=== PATIENT | male | born 1945 | race Caucasian/White ===

== ENCOUNTER 2016-11-30 22:49 | Emergency (ER) | payer MEDICARE ==
[2016-11-30 23:08] VITALS: BP 169/75
--- NOTE | 2016-12-01 01:01 | ED ---
Horacio Marrero Anna, scribed for Francis De Jesus MD on 11/30/16 at 2336 . Complex/Multi-Sys Presentation - HPI Summary HPI Summary: Patient is a 71 y/o male coming to [facility] after his Baclofen pump began beeping this evening at 2000. The alarm has been going off. He tried calling his doctor , Dr. Whitlock, but he was unable to get a hold of him. He took a PO dose of Baclofen at 2255. He denies current pain or other symptoms. - History Of Current Complaint Chief Complaint: EDGeneral Hx Obtained From: Patient, Family/Store Sales Manager - Accompanied by family Onset/Duration: Sudden Onset, Lasting Hours, Still Present Timing: Hours - Allergies/Home Medications Allergies/Adverse Reactions: Allergies Allergy/AdvReac Type Severity Reaction Status Date / Time Clindamycin Allergy Unknown Rash Verified 11/30/16 23:08 PMH/Surg Hx/FS Hx/Imm Hx Endocrine/Hematology History: Reports: Hx Diabetes - DIET CONTROLLED Denies: Hx Systemic Lupus Erythematosus Cardiovascular History: Reports: Hx Hypercholesterolemia, Hx Hypertension - ON MEDS Denies: Hx Congestive Heart Failure, Other Cardiovascular Problems/Disorders Respiratory History: Denies: Other Respiratory Problems/Disorders GI History: Reports: Other GI Disorders - CHRONIC HEPATITIS WITH ASSOCIATED ITCHING PER PT History: Denies: Hx Dialysis, Hx Renal Disease Musculoskeletal History: Reports: Hx Arthritis - RIGHT HIP REPLACED, Hx Osteoporosis, Hx Tendonitis - LEFT SHOULDER Denies: Hx Rheumatoid Arthritis Sensory History: Reports: Hx Contacts or Glasses - GLASSES Denies: Hx Hearing Aid Opthamlomology History: Reports: Hx Contacts or Glasses - GLASSES Neurological History: Reports: Hx Nerve Disease, 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 - Cancer History Hx Chemotherapy: No - Surgical History Surgery Procedure, Year, and Place: RIGHT HIP REPLACEMENT,PUMP FOR BACLOFEN, [place] Hx Anesthesia Reactions: No Infectious Disease History: Yes Infectious Disease History: Reports: Hx Hepatitis, Hx Human Immunodeficiency Virus (HIV) Denies: Traveled Outside the [place] in Last 30 Days - Family History Known Family History: Positive: Hypertension, Diabetes - Social History Occupation: Retired Lives: With Family Alcohol Use: Rare Alcohol Amount: Wine Substance Use Type: Reports: None Smoking Status (MU): Former Smoker Type: Cigarettes Amount Used/How Often: A TEENAGER FOR SHORT TIME Review of Systems Constitutional: Negative Neurological: Negative Psychological: Normal All Other Systems Reviewed And Are Negative: Yes Physical Exam Triage Information Reviewed: Yes Vital Signs On Initial Exam: Initial Vitals Temp Pulse Resp Pulse Ox 98.1 F 83 16 96 11/30/16 22:57 11/30/16 22:57 11/30/16 22:57 11/30/16 22:57 Vital Signs Reviewed: Yes Appearance: Positive: No Pain Distress Skin: Positive: Warm Head/Face: Positive: Normal Head/Face Inspection Eyes: Positive: SHANELL ENT: Positive: Hearing grossly normal Respiratory/Lung Sounds: Positive: Clear to Auscultation, Breath Sounds Present Cardiovascular: Positive: RRR Abdomen Description: Positive: Nontender, Soft, Other: - baclofen pump in place Bowel Sounds: Positive: Present Neurological: Positive: Alert, Oriented to Person Place, Time Diagnostics - Vital Signs Vital Signs Temp Pulse Resp BP Pulse Ox 11/30/16 23:00 98.1 F 83 16 169/75 96 11/30/16 22:57 98.1 F 83 16 96 - Laboratory Lab Statement: Any lab studies that have been ordered have been reviewed, and results considered in the medical decision making process. Complex Multi-Symp Course/Dx Assessment/Plan: Patient is a 71 y/o male coming to [facility] after his Baclofen pump began beeping this evening at 1999. The alarm has been going off. He tried calling his doctor, Dr. Whitlock, but he was unable to get a hold of him. He took a PO dose of Baclofen at 2255. He denies current pain or other symptoms. Discussed patient care with Dr. Hernandez (neurology) and Dr. Pope ( neurosurgery). Discussed with [employer] who will sent rep to check pump in am. Pt does not want to wait. Risks of leaving explained including withdrawal , loss of life, overdose. Pt understands and accepts risk - Diagnoses Provider Diagnoses: Chronic back pain - Physician Notifications Discussed Care Of Patient With: Dr. Hernandez (neurology) at 2337. He does not work with this patient and recommends that Dr. Pope be consulted. Dr. Pope (neurosurgery) at 2342. Dr. Pope has no recommendation. Discharge - Discharge Plan Condition: Fair Disposition: AGAINST MEDICAL ADVICE Patient Education Materials: Chronic Back Pain (ED) Referrals: Atiya Tovar MD [Primary Care Provider] - Additional Instructions: Follow up with your primary care physician within 48 hours. Return to the Emergency Department for new or worsening symptoms. The documentation as recorded by the Horacio vazquez Anna accurately reflects the service I personally performed and the decisions made by me, Francis De Jesus MD.
== END 2016-12-01 03:22 | disposition left against medical advice (07) ==
LOC: ED 22:49
DX: G89.29 Other chronic pain (principal); M54.9 Dorsalgia, unspecified; Z87.891 Personal history of nicotine dependence; Z53.21 Procedure and treatment not carried out due to patient leaving prior to being seen by health care provider
CPT/HCPCS: 99282

== ENCOUNTER 2016-12-01 07:55 | Emergency (ER) | payer MEDICARE ==
--- NOTE | 2016-12-01 13:56 | ED ---
Mariano Marrero Janilya, scribed for Sal Grossman MD on 12/01/16 at 0817 . Complex/Multi-Sys Presentation - HPI Summary HPI Summary: A 71 y/o male came in to [facility] presenting w/ a sudden onset of constant beeping of his baclofen pump starting last night at 1800. Pt is usually seen for these kinds of problems at a pain clinic, however at this time, it is closed. He states that a brewery representative will come and evaluate the pump. Pt says that the pump will shut down if not fixed quickly. Pt has baclofen pump for spasticity in legs for myopathy. Pt denies CP, SOB. Pt is currently in a wheelchair, although pt used his walker to ambulate. - History Of Current Complaint Chief Complaint: EDGeneral Hx Obtained From: Patient Onset/Duration: Gradual Onset, Lasting Days, Still Present Timing: Constant Severity Currently: Moderate Severity Initially: Moderate Associated Signs And Symptoms: Negative: SOB, Chest Pain - Allergies/Home Medications Allergies/Adverse Reactions: Allergies Allergy/AdvReac Type Severity Reaction Status Date / Time Clindamycin Allergy Unknown Rash Verified 11/30/16 23:08 PMH/Surg Hx/FS Hx/Imm Hx Previously Healthy: Yes Endocrine/Hematology History: Reports: Hx Diabetes - DIET CONTROLLED Denies: Hx Systemic Lupus Erythematosus Cardiovascular History: Reports: Hx Hypercholesterolemia, Hx Hypertension - ON MEDS Denies: Hx Congestive Heart Failure, Other Cardiovascular Problems/Disorders Respiratory History: Denies: Other Respiratory Problems/Disorders GI History: Reports: Other GI Disorders - CHRONIC HEPATITIS WITH ASSOCIATED ITCHING PER PT History: Denies: Hx Dialysis, Hx Renal Disease Musculoskeletal History: Reports: Hx Arthritis - RIGHT HIP REPLACED, Hx Osteoporosis, Hx Tendonitis - LEFT SHOULDER Denies: Hx Rheumatoid Arthritis Sensory History: Reports: Hx Contacts or Glasses - GLASSES Denies: Hx Hearing Aid Opthamlomology History: Reports: Hx Contacts or Glasses - GLASSES Neurological History: Reports: Hx Nerve Disease, 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 - Cancer History Hx Chemotherapy: No - Surgical History Surgery Procedure, Year, and Place: RIGHT HIP REPLACEMENT,PUMP FOR BACLOFEN, [place], [place] Hx Anesthesia Reactions: No Infectious Disease History: Reports: Hx Hepatitis, Hx Human Immunodeficiency Virus (HIV) Denies: Traveled Outside the [place] in Last 30 Days - Family History Known Family History: Positive: Hypertension, Diabetes - Social History Alcohol Use: Rare Alcohol Amount: Wine Substance Use Type: Reports: None Smoking Status (MU): Former Smoker Type: Cigarettes Amount Used/How Often: A TEENAGER FOR SHORT TIME Review of Systems Negative: Chest Pain Negative: Shortness Of Breath All Other Systems Reviewed And Are Negative: Yes Physical Exam - Summary Physical Exam Summary: Vital signs: reviewed General: Patient is comfortable sitting in wheal chair with no signs of distress. Patient walked in with a walker. He prefers to sit in a wheelchair vs stretcher. HEENT: within normal limits Lungs: CTA B/L CVS: S1 & S2 present. No murmurs appreciated. ABDOMEN: Soft, non-tender. No signs of distention. No rebound no guarding, and no masses palpated. Bowel sounds are normal. EXTREMITIES: FROM in all major joints, no edema, no cyanosis or clubbing. Positive diffuse muscle atrophy in his lower extremities. NEURO: Alert and oriented x 3. No acute neurological deficits. Speech is normal and follows commands. SKIN: Dry and warm Triage Information Reviewed: Yes Vital Signs On Initial Exam: Initial Vitals Temp Pulse Resp BP Pulse Ox 97.0 F 82 16 181/72 97 12/01/16 07:56 12/01/16 07:56 12/01/16 07:56 12/01/16 07:56 12/01/16 07:56 Vital Signs Reviewed: Yes Diagnostics - Vital Signs Vital Signs Temp Pulse Resp BP Pulse Ox 12/01/16 07:56 97.0 F 82 16 181/72 97 - Laboratory Lab Statement: Any lab studies that have been ordered have been reviewed, and results considered in the medical decision making process. Complex Multi-Symp Course/Dx Assessment/Plan: A 71 y/o male came in to [facility] presenting w/ a sudden onset of constant beeping of his baclofen pump starting last night at 1800. Pt is usually seen for these kinds of problems at a pain clinic, however at this time , it is closed. He states that a brewery representative will come and evaluate the pump. Pt says that the pump will shut down if not fixed quickly. Pt has baclofen pump for spasticity in legs for myopathy. Pt denies CP, SOB. We contacted [employer]'s brewery representative and he is coming to revise the pump. Patient has no complaints at this time. I have contacted Dr. Perdomo ( Neurologist), and Toshia Louise (neurosurgery) and they are unable to help the patients pump. I was able to get in touch with Dr. Chisholm (Pain management) and he will come and consult for the pain. He came and consulted for the patient. He recommends to discharge patient and f/u at his office. I discussed all the findings and test results with the patient. Patient was instructed to return to the emergency room immediately if any of the symptoms return or worsens. Plan of care was discussed with the patient and understands and agrees. All questions were answered at patient satisfaction. There were no further complaints or concerns. Lung exam before discharge: CTA B/L. Good air exchange. No wheezing or crackles heard. CVS: S1 and S2 present. No murmurs appreciated. Patient is alert and oriented x 3. Patient is hemodynamically stable. Patient will be discharged home with follow up commercial agent in the next 2-3 days - Diagnoses Differential Diagnoses/HQI/PQRI: Other - Baclofen pump malfunction Provider Diagnoses: Baclofen pump failure - Physician Notifications Discussed Care Of Patient With: Dr. Hernandez (neurologist) at 1013: consulted on baclofen pump. Dr. Pope (neuro surg) at 1020: consulted on baclofen pump. Dr. Chisholm (biofuels plant construction worker) at 1035: consulted on baclofen pump; agreed to come and evaluate pt. The pain clinic, where pt normally goes for his problems with the pump, is closed on weekends. Discharge - Discharge Plan Condition: Stable Disposition: HOME Prescriptions: Baclofen TAB* [Lioresal TAB*] 50 mg PO TID #30 tab Patient Education Materials: Baclofen (By injection) Referrals: Atiya Tovar MD [Primary Care Provider] - 2 Days The documentation as recorded by the Mariano vazquez Janilya accurately reflects the service I personally performed and the decisions made by me, Sal Grossman MD.
[2016-12-01 14:17] VITALS: BP 170/59
--- NOTE | 2016-12-02 07:34 | PM ---
PAIN CLINIC FOLLOWUP: DATE OF FOLLOWUP: 12/01/16 - EMERGENCY DEPT HISTORY: I was called to the emergency room to see Arun by Dr. Grossman. Arun is a 71-year-old male to known me. He has HIV-associated myelopathy with spasticity. For the spasticity, he uses a baclofen pump. I had seen Arun on 11/14/16. At that time, the pump was refilled with 40 mL's of baclofen, 2000 mcg/mL, the same concentration. His new reservoir alarm date was noted to be 03/25/17. The rate of the pump was not changed. He receives a total daily dose of baclofen at 576 mcg per day. He is dosed with a complex rate. He has a basal rate of 27.4 mcg an hour and midnight to 6 a.m., there was a dose of 13.7 mcg an hour. The patient's alarm began to go off at 11 o' clock last night. The pump has 2 alarms and the critical alarm was going off last night. He came into the emergency room. He was found to be in no distress. His muscle tone was as usual. The [employer] rep was called and the patient was told to return to the emergency room at 8 o'clock this morning. I was called at 11 a.m. this morning. I arrived in the ER at 12:40. The patient's pump was interrogated. Interrogation showed that the pump was reading that there was medicine left in the reservoir. As his pump was refilled on November 14, this reading was felt to be spurious. Also, the patient had no symptoms leading us to conclude that the reading was probably spurious. However, to be sure, it was decided to access the pump and withdraw whatever drug within the pump measure and immediately refilled. The patient agreed. The area overlying the pump was prepped with one-step prep twice, and allowed to dry between applications. The [employer] template was placed in the 9 o' clock position over the pump. A 22-gauge Frank needle, non-boring, was used to accesses the pump. 35 cc of clear baclofen was withdrawn. The pump was immediately refilled with 35 cc of the same baclofen. The baclofen was noted to be 2000 mcg/mL. There were no changes made to the dosing pattern. The new reservoir alarm was again noted to be 03/25/17. The patient tolerated the procedure well. Emergency room staff checked his vitals following the procedure and he was felt to be stable. He would be discharged by the emergency room staff. 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 PLAN: As noted above. The pump was interrogated. The pump was accessed. The pump interrogation showed no medicine in the reservoir; however, after accessing the pump, 35 cc of baclofen was noted to be in the pump. The pump was immediately refilled with the same medicine. The patient was told to call the Pain Clinic on Saturday if his pump continues to alarm. Also of note, the pump was noted to have been put in 2013, so should be functioning normally; however, if it continues to alarm, he may need a new pump. [id number]/[facility] [place] #: [id number] MTDD
== END 2016-12-01 14:43 | disposition home or self-care (01) ==
LOC: ED 07:55
DX: T85.9XXA Unspecified complication of internal prosthetic device, implant and graft, initial encounter (principal); Z87.891 Personal history of nicotine dependence; Z96.649 Presence of unspecified artificial hip joint
CPT/HCPCS: 62370; 99282

== ENCOUNTER 2018-08-05 11:35 | Day surgery (SDC) | payer MEDICARE ==
[~2018-08-05 11:35] MED LIST: Acetaminophen TAB* 325 MG PO PRN; Buffered Lidocaine 0.9% SYRIN* 5 ML/SYR SYRINGE INTRADERM ONE; Cyclopentolate 1% OPTH.SOL* 2 ML BTL ONE; Ketorolac 0.5% OPHTH (NF) 0.5 % 5 ML BTL ONE; Lidocaine 1%* 5 ML VIAL ONE; Neomycin/Polymy/Dex OPHTH.OIN* 3.5 GM ONE; Phenylephrine 2.5% OPTH.SOL* 2 ML BTL ONE; Tetracaine 0.5% OPTH.SOL 4 ML* 1 DROP BTL ONE; Tropicamide 1% OPTH.SOL* BTL ONE
[2018-08-05] MEDS ORDERED: Midazolam* 1 MG/ML 2 ML VIAL (2 MG) ONE (12:45)
[2018-08-05] MEDS ORDERED: fentaNYL* 50 MCG/ML 2 ML VIAL (100 MCG VIAL) ONE (12:45)
[2018-08-05 13:41] VITALS: BP 112/55
[2018-08-05] MEDS ORDERED: Phenylephr/Ketorolac 1%/0.3% OPH DROP BTL ONE (13:44)
--- NOTE | 2018-08-05 15:10 | OP ---
DATE OF OPERATION/DATE OF DICTATION: 08/05/2018 - [facility] DATE OF : 1945. SURGEON: Dr. Gomez Leslie. CASTINGS DRAFTER: None. ANESTHESIA: Topical with intravenous sedation. PRE-OP DIAGNOSIS: Cataract, left eye. POST-OP DIAGNOSIS: Cataract, left eye. OPERATIVE PROCEDURE: Phacoemulsification and cataract extraction with posterior chamber intraocular lens implant, left eye. COMPLICATIONS: None. BLOOD LOSS: None. DESCRIPTION OF PROCEDURE: The patient was brought to the operating room and received a small amount of intravenous sedation. A drop of Tetracaine was placed in his left eye. He was prepped and draped in the usual sterile fashion for ophthalmic surgery and attention was directed to the left eye where a speculum was placed. A paracentesis was created at the 5 o'clock position and 0.1 cc of 1 percent preservative-free Lidocaine was injected into the anterior chamber followed by DisCoVisc. The eye was digitally stabilized while a 2.75 mm keratome was used to create a triplanar clear corneal incision at the 3 o' clock position. A continuous curvilinear capsulorrhexis was created with a cystotome and Utrata forceps. BSS on a cannula was used to hydrodissect the lens from the capsule. Phacoemulsification was performed in a divide-and- conquer technique to create four fragments which were removed. Residual cortical material was removed with irrigation and aspiration. DisCoVisc was used to inflate the capsular bag and an AUOOTO 23 diopter lens was folded and inserted into the capsular bag. DisCoVisc was removed using irrigation and aspiration. BSS on a cannula was used to hydrate the corneal stroma and seal the wound. At the end of the case the pupil was round and the lens was centered. The eye was of normal pressure and the wound was water tight. The speculum was removed and topical Maxitrol ointment was placed on the surface of the eye. The eye was closed, patched and shielded and the patient was sent to the recovery room in stable condition with post operative instructions and follow-up appointment given. [id number]/[facility] #: [id number] MTDD
== END 2018-08-05 13:53 | disposition home or self-care (01) ==
LOC: OREAST 11:35
PROVIDERS: ATTEND Ophthalmology
DX: Z01.818 Encounter for other preprocedural examination (principal); H25.12 Age-related nuclear cataract, left eye; Z87.891 Personal history of nicotine dependence; Z88.1 Allergy status to other antibiotic agents
CPT/HCPCS: A9270-GY; C9447; J2250; J3010; V2632

== ENCOUNTER 2018-08-12 10:09 | Day surgery (SDC) | payer MEDICARE ==
[~2018-08-12 10:09] MED LIST changes: -Cyclopentolate 1% OPTH.SOL* 2 ML BTL ONE; -Ketorolac 0.5% OPHTH (NF) 0.5 % 5 ML BTL ONE; -Lidocaine 1%* 5 ML VIAL ONE; -Neomycin/Polymy/Dex OPHTH.OIN* 3.5 GM ONE; -Phenylephrine 2.5% OPTH.SOL* 2 ML BTL ONE; -Tetracaine 0.5% OPTH.SOL 4 ML* 1 DROP BTL ONE; -Tropicamide 1% OPTH.SOL* BTL ONE
[2018-08-12] MEDS ORDERED: Midazolam* 1 MG/ML 2 ML VIAL (2 MG) ONE (11:31)
[2018-08-12] MEDS ORDERED: fentaNYL* 50 MCG/ML 2 ML VIAL (100 MCG VIAL) ONE (11:31)
[2018-08-12 12:32] VITALS: BP 113/59
[2018-08-12] MEDS ORDERED: Phenylephr/Ketorolac 1%/0.3% OPH DROP BTL ONE (15:02)
[2018-08-12] MEDS ORDERED: Phenylephrine 2.5% OPTH.SOL* 2 ML BTL ONE (15:02)
[2018-08-12] MEDS ORDERED: Lidocaine 1%* 5 ML VIAL ONE (15:02)
[2018-08-12] MEDS ORDERED: Neomycin/Polymy/Dex OPHTH.OIN* 3.5 GM ONE (15:02)
[2018-08-12] MEDS ORDERED: Ketorolac 0.5% OPHTH (NF) 0.5 % 5 ML BTL ONE (15:02)
[2018-08-12] MEDS ORDERED: Cyclopentolate 1% OPTH.SOL* 2 ML BTL ONE (15:02)
[2018-08-12] MEDS ORDERED: Tropicamide 1% OPTH.SOL* BTL ONE (15:02)
[2018-08-12] MEDS ORDERED: Tetracaine 0.5% OPTH.SOL 4 ML* 1 DROP BTL ONE (15:02)
--- NOTE | 2018-08-12 20:37 | OP ---
DATE OF OPERATION: 08/12/18 [facility] DATE OF : 45 SURGEON: Dr. Gomez Leslie. VP ORGANIZATIONAL DEVELOPMENT: None. ANESTHESIA: Topical with intravenous sedation. PRE-OP DIAGNOSIS: Cataract, right eye. POST-OP DIAGNOSIS: Cataract, right eye. OPERATIVE PROCEDURE: Phacoemulsification and cataract extraction with posterior chamber intraocular lens implant, right eye. COMPLICATIONS: None. BLOOD LOSS: None. DESCRIPTION OF PROCEDURE: The patient was brought to the operating room and received a small amount of intravenous sedation. A drop of Tetracaine was placed in his right eye. He was prepped and draped in the usual sterile fashion for ophthalmic surgery and attention was directed to the right eye where a speculum was placed. A paracentesis was created at the 11 o'clock position and 0.1 cc of 1 percent preservative-free Lidocaine was injected into the anterior chamber followed by DisCoVisc. The eye was digitally stabilized while a 2.75 mm keratome was used to create a triplanar clear corneal incision at the 9 o'clock position. A continuous curvilinear capsulorrhexis was created with a cystotome and Utrata forceps. BSS on a cannula was used to hydrodissect the lens from the capsule. Phacoemulsification was performed in a divide-and- conquer technique to create four fragments which were removed. Residual cortical material was removed with irrigation and aspiration. DisCoVisc was used to inflate the capsular bag and an [id number] 21.0 diopter lens was folded and inserted into the capsular bag. DisCoVisc was removed using irrigation and aspiration. BSS on a cannula was used to hydrate the corneal stroma and seal the wound. At the end of the case the pupil was round and the lens was centered. The eye was of normal pressure and the wound was water tight. The speculum was removed and topical Maxitrol ointment was placed on the surface of the eye. The eye was closed, patched and shielded and the patient was sent to the recovery room in stable condition with post operative instructions and follow-up appointment given. [id number]/[facility] #: [id number] SHADI
== END 2018-08-12 12:45 | disposition home or self-care (01) ==
LOC: OREAST 10:09
PROVIDERS: ATTEND Ophthalmology
DX: H25.11 Age-related nuclear cataract, right eye (principal); E11.9 Type 2 diabetes mellitus without complications; Z21 Asymptomatic human immunodeficiency virus [HIV] infection status; I10 Essential (primary) hypertension; N31.9 Neuromuscular dysfunction of bladder, unspecified; G95.89 Other specified diseases of spinal cord
CPT/HCPCS: A9270-GY; C9447; J2250; J3010; V2632

== ENCOUNTER 2020-11-09 17:41 | Inpatient (IN) ==
[2020-11-09 19:13] LABS: ABS Basophils 0.1 10^3/ul (0-0.2); ABS Eosinophils 0.5 10^3/ul (0-0.6); ABS Lymphocytes 1.6 10^3/ul (1.0-4.8); ABS Monocytes 0.7 10^3/ul (0-0.8); ABS Neutrophils 5.4 10^3/ul (1.5-7.7); Eosinophil % 5.8 %; Hematocrit 29 % (42-52); Hemoglobin 9.9 g/dL (14.0-18.0); Lymphocyte % 19.4 %; Mean Corpuscular HGB Conc 34 g/dL (31-36); Mean Corpuscular Hemoglobin 34 pg (27-31); Mean Corpuscular Volume 99 fL (80-94); Mean Platelet Volume 7.8 fL (7.4-10.4); Platelet Count 284 10^3/uL (150-450); Red Blood Count 2.95 10^6 /uL (4.18-5.48); Red Cell Distribution Width 14 % (10-15); White Blood Count 8.3 10^3/uL (3.5-10.8)
[2020-11-09 19:20] LABS: INR 1.3 (0.82-1.09)
[2020-11-09 19:28] LABS: Albumin 4.2 g/dL (3.2-5.2); Albumin/Globulin Ratio 1.3 (1-3); BUN/Creatinine Ratio 34.5 (8-20); Calcium 9.8 mg/dL (8.6-10.3); EGFR African American 33.9 (>60); Globulin 3.3 g/dL (2-4); Total Bilirubin 0.3 mg/dL (0.2-1.0); Total Protein 7.5 g/dL (6.4-8.9)
[2020-11-09 19:45] LABS: Potassium 5.3 mmol/L (3.5-5.0)
[2020-11-09 19:46] LABS: Troponin I 0.01 ng/mL (<0.03)
[2020-11-09] MEDS ORDERED: NS 0.9% 500 ml BAG 500 ML IV ONE (20:05)
[2020-11-09] MEDS ORDERED: PTO: Triamcinolone 0.1% CREAM (NF) 15 GM TUBE TOPICAL PRN (21:59)
[2020-11-09] MEDS ORDERED: NS 0.9% 1000 ml BAG 1,000 ML IV SCH (22:00)
[2020-11-09 23:19] LABS: % Iron Saturation 11 % (15-55); Iron 44 ug/dL (50-212); Total Iron Binding Capacity 419 mcg/dL (250-450); Transferrin 299 mg/dL (203-362); Unsaturated Iron Binding < 404 ug/dL
[2020-11-09 23:43] LABS: Ferritin 58.4 ng/mL (24-336)
[2020-11-09 23:47] LABS: Folate > 20.00 ng/mL (>3.99); Vitamin B12 > 1450 pg/mL (180-914)
[2020-11-10 06:23] LABS: ABS Basophils 0.1 10^3/ul (0-0.2); ABS Eosinophils 0.5 10^3/ul (0-0.6); ABS Lymphocytes 1.3 10^3/ul (1.0-4.8); ABS Monocytes 0.7 10^3/ul (0-0.8); ABS Neutrophils 4.1 10^3/ul (1.5-7.7); Eosinophil % 7.5 %; Hematocrit 24 % (42-52); Hemoglobin 8.3 g/dL (14.0-18.0); Lymphocyte % 20.2 %; Mean Corpuscular HGB Conc 34 g/dL (31-36); Mean Corpuscular Hemoglobin 34 pg (27-31); Mean Corpuscular Volume 99 fL (80-94); Mean Platelet Volume 7.9 fL (7.4-10.4); Platelet Count 238 10^3/uL (150-450); Red Blood Count 2.47 10^6 /uL (4.18-5.48); Red Cell Distribution Width 14 % (10-15); White Blood Count 6.6 10^3/uL (3.5-10.8)
[2020-11-10 06:42] LABS: BUN/Creatinine Ratio 35.4 (8-20); EGFR Non-African American 30.6 (>60)
[2020-11-10 06:57] LABS: Potassium 5.2 mmol/L (3.5-5.0)
[2020-11-10 10:00] LABS: Urine Appearance Turbid; Urine Bilirubin Negative (Negative); Urine Blood Negative (Negative); Urine Color Yellow; Urine Glucose Negative (Negative); Urine Ketones Negative (Negative); Urine Nitrite Negative (Negative); Urine Protein 2+(100 mg/dL) (Negative); Urine Specific Gravity 1.011 (1.010-1.030); Urine Urobilinogen Negative (Negative)
[2020-11-10 10:18] LABS: Urine Bacteria 2+ (Absent); Urine Red Blood Cell Absent (Absent); Urine White Blood Cell 3+(>20/hpf) (Absent)
[2020-11-10] MEDS ORDERED: ceFAZolin 2 GM PREMIX 2 GM/50 ML BAG IVPB ONE (11:49)
[2020-11-10] MEDS: NS 0.9% 1000 ml BAG 1,000 ML IV SCH (11:57)
[2020-11-10 12:33] LABS: ABS Basophils 0.1 10^3/ul (0-0.2); ABS Eosinophils 0.4 10^3/ul (0-0.6); ABS Lymphocytes 1.6 10^3/ul (1.0-4.8); ABS Monocytes 0.7 10^3/ul (0-0.8); ABS Neutrophils 5.8 10^3/ul (1.5-7.7); Eosinophil % 4.6 %; Hematocrit 26 % (42-52); Hemoglobin 8.7 g/dL (14.0-18.0); Mean Corpuscular HGB Conc 34 g/dL (31-36); Mean Corpuscular Hemoglobin 34 pg (27-31); Mean Corpuscular Volume 99 fL (80-94); Mean Platelet Volume 7.1 fL (7.4-10.4); Platelet Count 236 10^3/uL (150-450); Red Blood Count 2.59 10^6 /uL (4.18-5.48); Red Cell Distribution Width 14 % (10-15); White Blood Count 8.5 10^3/uL (3.5-10.8)
[2020-11-10] MEDS: Cholecalciferol (VIT D3) 1,000 unit TAB PO SCH (12:56)
[2020-11-10] MEDS ORDERED: Iohexol 300 (CONTRAST) 10 ML SDV ONE (15:38)
[2020-11-10] MEDS ORDERED: Midazolam 5 mg/5 ml VIAL 1 mg/ml 5 ml VIAL (5 mg) ONE (15:38)
[2020-11-10] MEDS ORDERED: fentaNYL 100 mcg/2 ml 50 MCG/ML VIAL ONE (15:38)
[2020-11-10] MEDS ORDERED: Lidocaine 1% VIAL 10 MG/ML VIAL ONE (15:40)
[2020-11-10] MEDS: NF: Bictegravir/Emtricit/Tenofov 1 TABLET PO SCH (17:45)
[2020-11-10] MEDS: ceFAZolin VIAL 1 GM in NS 0.9% 50 ML 50 ML IVPB SCH (20:51)
[2020-11-11] MEDS: NS 0.9% 1000 ml BAG 1,000 ML IV SCH (05:23)
[2020-11-11 06:37] LABS: ABS Eosinophils 0.4 10^3/ul (0-0.6); ABS Lymphocytes 1.2 10^3/ul (1.0-4.8); ABS Monocytes 0.7 10^3/ul (0-0.8); ABS Neutrophils 7.7 10^3/ul (1.5-7.7); Eosinophil % 4.2 %; Hematocrit 26 % (42-52); Hemoglobin 8.9 g/dL (14.0-18.0); Lymphocyte % 11.9 %; Mean Corpuscular HGB Conc 34 g/dL (31-36); Mean Corpuscular Hemoglobin 34 pg (27-31); Mean Corpuscular Volume 100 fL (80-94); Mean Platelet Volume 7.3 fL (7.4-10.4); Platelet Count 245 10^3/uL (150-450); Red Blood Count 2.64 10^6 /uL (4.18-5.48); Red Cell Distribution Width 14 % (10-15); White Blood Count 10.1 10^3/uL (3.5-10.8)
[2020-11-11 06:53] LABS: BUN/Creatinine Ratio 29.3 (8-20); Calcium 9.2 mg/dL (8.6-10.3); EGFR African American 56.5 (>60); EGFR Non-African American 46.7 (>60); Potassium 4.5 mmol/L (3.5-5.0)
[2020-11-11] MEDS: ceFAZolin VIAL 1 GM in NS 0.9% 50 ML 50 ML IVPB SCH (08:13)
[2020-11-11] MEDS: Cholecalciferol (VIT D3) 1,000 unit TAB PO SCH (08:19)
[2020-11-11] MEDS: NF: Bictegravir/Emtricit/Tenofov 1 TABLET PO SCH (08:19)
[2020-11-11] MEDS ORDERED: COVID-19 VACCINE, MRNA(PFIZER)/PF 30 MCG/0.3 ML IM ONE (10:00)
[2020-11-11 16:06] LABS: 4/8 H/S Ratio 0.7 (>=0.9); CD3 896 cells/mcL (550-2202); CD4 374 cells/mcL (365-1437); CD8 574 cells/mcL (80-846)
[2020-11-11 16:30] VITALS: BP 139/60
[2020-11-15 00:17] LABS: IgG Immunoblot Negative (Negative); IgM Immunoblot Negative (Negative)
== END 2020-11-11 19:00 | disposition home or self-care (01) | DRG 243 ==
LOC: ED 17:41 → MEDTELE 21:52
PROVIDERS: ADMIT Internal Medicine; ATTEND Pediatrics